=== PATIENT | male | born 1970 | race Caucasian/White ===

== ENCOUNTER 2023-01-23 13:25 | Inpatient (IN) | payer OTHER ==
[2023-01-23 14:59] VITALS: BMI 25.3
[2023-01-23] MEDS ORDERED: NICOTINE 10 MG CARTRIDGE (INHALER) IH PRN (17:49)
[2023-01-23] MEDS ORDERED: ACETAMINOPHEN 325 MG TABLET (FP) PO PRN (17:49)
[2023-01-23] MEDS ORDERED: MAGNESIUM HYDROX 2400MG/30ML ORAL SUSPENSION 30 ML CUP PO PRN (17:49)
[2023-01-23] MEDS ORDERED: BISMUTH SUBSALICYLATE 524 MG/30 ML PO PRN (17:49)
[2023-01-23] MEDS ORDERED: guaiFENesin 600 MG TABLET.ER (FP) PO PRN (17:49)
[2023-01-23] MEDS ORDERED: MAG HYDROX/AL HYDROX/SIMETH 30 ML UNIT-DOSE CUP PO PRN (17:49)
[2023-01-23] MEDS ORDERED: BENZOCAINE/MENTHOL (CHLORASEPTIC ) LOZENGE MM PRN (17:49)
[2023-01-23] MEDS ORDERED: BENZONATATE 200 MG CAPSULE PO PRN (17:49)
[2023-01-23] MEDS ORDERED: NALOXONE HCL (KLOXXADO) 8 MG SPRAY NS PRN (17:49)
[2023-01-23] MEDS ORDERED: ONDANSETRON *ODT* 4 MG TABLET SL PRN (17:49)
[2023-01-23] MEDS ORDERED: DICYCLOMINE HCL 10 MG CAPSULE PO PRN (17:49)
[2023-01-23] MEDS ORDERED: hydrOXYzine PAMOATE 25 MG CAPSULE (FP) PO PRN (17:49)
[2023-01-23] MEDS ORDERED: LOPERAMIDE HCL 2 MG CAPSULE PO PRN (17:49)
[2023-01-23] MEDS ORDERED: POLYETHYLENE GLYCOL (HEALTHYLAX) 3350 17 GM PACKET PO PRN (17:49)
[2023-01-23] MEDS ORDERED: IBUPROFEN 600 MG TABLET (FP) PO PRN (17:49)
[2023-01-23] MEDS ORDERED: IBUPROFEN 400 MG TABLET (FP) PO PRN (17:49)
[2023-01-23] MEDS ORDERED: NALOXONE HCL 0.4 MG/ML VIAL IM PRN (17:49)
[2023-01-23] MEDS ORDERED: diazePAM 5 MG TABLET ONE (18:49)
[2023-01-23] MEDS: diazePAM 5 MG TABLET PO PRN (18:51)
[2023-01-23] MEDS: MELATONIN 5 MG TABLETS PO SCH (21:35)
[2023-01-23] MEDS: THIAMINE HCL 100 MG TABLET (FP) PO SCH (21:35)
[2023-01-23] MEDS: diazePAM 5 MG TABLET PO SCH (22:11)
[2023-01-23] MEDS: METHOCARBAMOL 500 MG TABLET PO PRN (22:11)
[2023-01-24] MEDS: diazePAM 5 MG TABLET PO SCH ×4 (05:39→22:27)
[2023-01-24] MEDS: metFORMIN HCL 500 MG TABLET (FP) PO SCH ×2 (06:11→17:27)
[2023-01-24] MEDS: PRENATAL VITAMINS W/ FOLIC ACID TABLET (FP) PO SCH (10:17)
[2023-01-24 10:53] LABS: CALCIUM 7.8 mg/dL (8.5-10.1); HEMATOCRIT 32.2 % (35.4-49); HEMOGLOBIN 11.2 GM/dL (11.7-16.9); MCH 32.3 pg (25.7-33.7); MCHC 34.6 g/dl (32.0-35.9); MEAN CELL VOLUME 93.2 fl (80-96); RBC 3.46 M/mm3 (4.00-5.60); RDW 15.8 % (11.9-15.9); WHITE BLOOD COUNT 2.4 K/mm3 (4.0-10.0)
[2023-01-24 10:54] LABS: ALBUMIN 2.7 g/dl (3.4-5.0); BLOOD UREA NITROGEN 4.5 mg/dL (7-18)
[2023-01-24 10:57] LABS: CREATININE 0.5 mg/dL (0.55-1.3)
[2023-01-24 10:58] LABS: BILIRUBIN,TOTAL 2.2 mg/dL (0.2-1); TOT PROT 6.9 g/dl (6.4-8.2)
[2023-01-24 11:25] LABS: PLATELET COUNT 31 10^3/uL (134-434)
[2023-01-24] MEDS: MELATONIN 5 MG TABLETS PO SCH (22:27)
[2023-01-24] MEDS: THIAMINE HCL 100 MG TABLET (FP) PO SCH (22:27)
[2023-01-25] MEDS: diazePAM 5 MG TABLET PO SCH ×3 (05:39→22:08)
[2023-01-25] MEDS: metFORMIN HCL 500 MG TABLET (FP) PO SCH ×2 (06:20→17:23)
[2023-01-25] MEDS: diazePAM 5 MG TABLET PO PRN ×2 (10:04→17:24)
[2023-01-25] MEDS: METHOCARBAMOL 500 MG TABLET PO PRN ×2 (10:04→22:09)
[2023-01-25] MEDS: PRENATAL VITAMINS W/ FOLIC ACID TABLET (FP) PO SCH (10:04)
[2023-01-25] MEDS: MELATONIN 5 MG TABLETS PO SCH (22:08)
[2023-01-25] MEDS: THIAMINE HCL 100 MG TABLET (FP) PO SCH (22:08)
[2023-01-26] MEDS: diazePAM 5 MG TABLET PO SCH ×2 (05:46→17:01)
[2023-01-26] MEDS: metFORMIN HCL 500 MG TABLET (FP) PO SCH ×2 (08:00→17:02)
[2023-01-26] MEDS: diazePAM 5 MG TABLET PO PRN (10:13)
[2023-01-26] MEDS: PRENATAL VITAMINS W/ FOLIC ACID TABLET (FP) PO SCH (10:14)
[2023-01-26] MEDS ORDERED: POTASSIUM CHLORIDE ORAL LIQUID 20 MEQ/15 ML PO ONE ×2 (11:15→15:00)
[2023-01-26 12:06] LABS: HEMATOCRIT 32.8 % (35.4-49); HEMOGLOBIN 11.2 GM/dL (11.7-16.9); MCH 32.1 pg (25.7-33.7); MEAN CELL VOLUME 94.3 fl (80-96); MEAN PLT VOLUME 9.9 fl (7.5-11.1); PLATELET COUNT 45 10^3/uL (134-434); RBC 3.48 M/mm3 (4.00-5.60); RDW 15.5 % (11.9-15.9); WHITE BLOOD COUNT 3.8 K/mm3 (4.0-10.0)
[2023-01-26] MEDS: MELATONIN 5 MG TABLETS PO SCH (22:03)
[2023-01-26] MEDS: THIAMINE HCL 100 MG TABLET (FP) PO SCH (22:03)
[2023-01-27] MEDS ORDERED: diazePAM 5 MG TABLET PO ONE (06:00)
[2023-01-27] MEDS: metFORMIN HCL 500 MG TABLET (FP) PO SCH (06:19)
[2023-01-27 08:55] VITALS: BP 118/69; PULSE 73; RESP 18; TEMP 96.7
[2023-01-27 12:46] LABS: POTASSIUM 3.6 mmol/L (3.5-5.1)
[2023-01-27 13:14] LABS: CALCIUM 8.8 mg/dL (8.5-10.1)
[2023-01-27 13:15] LABS: BLOOD UREA NITROGEN 8.2 mg/dL (7-18)
[2023-01-27 13:18] LABS: CREATININE 0.6 mg/dL (0.55-1.3)
== END 2023-01-27 08:55 | disposition home or self-care (01) | DRG 775 ==
LOC: YASAS 13:25 → Y3N 17:56
PROVIDERS: ADMIT Allergy & Immunology; ATTEND Surgery
PROC: HZ2ZZZZ Detoxification Services for Substance Abuse Treatment (ICD-10-PCS; principal; 2023-01-23)
DX: F10.230 Alcohol dependence with withdrawal, uncomplicated (principal); F41.9 Anxiety disorder, unspecified; D61.818 Other pancytopenia; E87.6 Hypokalemia; E11.59 Type 2 diabetes mellitus with other circulatory complications; Z79.84 Long term (current) use of oral hypoglycemic drugs
CPT/HCPCS: 36415; 80048; 80053; 82962; 85027; 86780; C9803-CS; U0003; U0005

== ENCOUNTER 2024-12-29 15:26 | Inpatient (IN) | payer OTHER ==
[2024-12-29 15:58] VITALS: BMI 25.7
[2024-12-29] MEDS ORDERED: DICYCLOMINE HCL 10 MG CAPSULE PO PRN (15:59)
[2024-12-29] MEDS ORDERED: POLYETHYLENE GLYCOL (HEALTHYLAX) 3350 17 GM PACKET PO PRN (15:59)
[2024-12-29] MEDS ORDERED: MAG HYDROX/AL HYDROX/SIMETH 30 ML UNIT-DOSE CUP PO PRN (15:59)
[2024-12-29] MEDS ORDERED: NALOXONE (NARCAN) HCL 4 MG/0.1 ML SPRAY NS PRN (15:59)
[2024-12-29] MEDS ORDERED: MAGNESIUM HYDROX 2400MG/30ML ORAL SUSPENSION 30 ML CUP PO PRN (15:59)
[2024-12-29] MEDS ORDERED: ONDANSETRON *ODT* 4 MG TABLET SL PRN (15:59)
[2024-12-29] MEDS ORDERED: LOPERAMIDE HCL 2 MG CAPSULE PO PRN (15:59)
[2024-12-29] MEDS ORDERED: hydrOXYzine PAMOATE 25 MG CAPSULE (FP) PO PRN (15:59)
[2024-12-29] MEDS ORDERED: IBUPROFEN 400 MG TABLET (FP) PO PRN (15:59)
[2024-12-29] MEDS ORDERED: guaiFENesin 600 MG TABLET.ER (FP) PO PRN (15:59)
[2024-12-29] MEDS ORDERED: BISMUTH SUBSALICYLATE 524 MG/30 ML PO PRN (15:59)
[2024-12-29] MEDS ORDERED: BENZOCAINE/MENTHOL (CHLORASEPTIC ) LOZENGE MM PRN (15:59)
[2024-12-29] MEDS ORDERED: BENZONATATE 200 MG CAPSULE PO PRN (15:59)
[2024-12-29] MEDS: PRENATAL VITAMINS W/ FOLIC ACID TABLET (FP) PO SCH (17:58)
[2024-12-29] MEDS: INSULIN ASPART SLIDING SCALE (NOVOLOG) 1 VIAL SQ SCH (18:00)
[2024-12-29] MEDS ORDERED: INSULIN (NOVOLOG) ASPART 100 UNITS/ML 10ML VIAL ONE (18:04)
[2024-12-29] MEDS: NALTREXONE HCL 50 MG TABLET PO ONE (18:42)
[2024-12-29] MEDS: MELATONIN 5 MG TABLETS PO SCH (22:07)
[2024-12-29] MEDS: diazePAM 5 MG TABLET PO SCH (22:08)
[2024-12-29] MEDS: THIAMINE 100 MG TABLET PO SCH (22:09)
[2024-12-30] MEDS: glipiZIDE-XL 10 MG TAB.ER.24 (FP) PO SCH (06:23)
[2024-12-30] MEDS: ACETAMINOPHEN 325 MG TABLET (FP) PO PRN (11:08)
[2024-12-30 12:29] LABS: HEMATOCRIT 38.2 % (40.1-51.0); MEAN CELL VOLUME 93.2 fl (79.0-92.2); MEAN PLT VOLUME 11.8 fl (9.4-12.4); PLATELET COUNT 85 x10^3/uL (163-337); RDW 15.4 % (12.2-16.1)
[2024-12-30 12:36] LABS: CHLORIDE 103 mmol/L (98-107); POTASSIUM 3.5 mmol/L (3.5-5.1); SODIUM 135 mmol/L (136-145)
[2024-12-30 12:47] LABS: GLUCOSE,RANDOM 210 mg/dL (74-106)
[2024-12-30 12:48] LABS: ALBUMIN 3.3 g/dl (3.4-5.0); ANION GAP 7 mmol/L (4-13); CALCIUM 9.5 mg/dL (8.5-10.1); CO2 25 mmol/L (21-32)
[2024-12-30 12:51] LABS: CREATININE 0.5 mg/dL (0.55-1.3); SGOT/AST 71 U/L (15-37)
[2024-12-30 12:52] LABS: BILIRUBIN,TOTAL 1.7 mg/dL (0.2-1); SGPT/ALT 40 U/L (13-61)
[2024-12-30 12:53] LABS: ALK PHOS 150 U/L (45-117)
[2024-12-30] MEDS: METHOCARBAMOL 500 MG TABLET PO PRN (17:30)
[2024-12-30] MEDS: SUVOREXANT 10 MG TABLET PO PRN (22:26)
[2024-12-31] MEDS: diazePAM 5 MG TABLET PO SCH (05:47)
[2024-12-31] MEDS: glipiZIDE-XL 5 MG TAB.ER.24 PO SCH (07:25)
[2024-12-31] MEDS: IBUPROFEN 600 MG TABLET (FP) PO PRN (10:04)
[2024-12-31] MEDS: diazePAM 5 MG TABLET PO PRN (16:55)
[2025-01-01] MEDS: diazePAM 5 MG TABLET PO SCH (05:53)
[2025-01-02] MEDS: diazePAM 5 MG TABLET PO ONE (05:44)
[2025-01-02 08:46] VITALS: BP 110/69; PULSE 86; RESP 18; TEMP 98
== END 2025-01-02 09:25 | disposition home or self-care (01) | DRG 775 ==
LOC: YASAS 15:26 → Y6N 18:10
PROVIDERS: ADMIT Allergy & Immunology; ATTEND Allergy & Immunology
PROC: HZ2ZZZZ Detoxification Services for Substance Abuse Treatment (ICD-10-PCS; principal; 2024-12-29)
DX: F10.230 Alcohol dependence with withdrawal, uncomplicated (principal); F10.282 Alcohol dependence with alcohol-induced sleep disorder; F39 Unspecified mood [affective] disorder; E11.59 Type 2 diabetes mellitus with other circulatory complications; Z79.84 Long term (current) use of oral hypoglycemic drugs; R74.01 Elevation of levels of liver transaminase levels
CPT/HCPCS: 36415; 80053; 80305; 80307; 82962; 85027; 86780; 93005; 93010